=== PATIENT | male | born 1965 | race Caucasian/White ===

== ENCOUNTER 2017-02-26 16:37 | Emergency (ER) | payer MEDICARE ==
[2017-02-26 17:25] LABS: #Basophils 0.1 thou/uL (0.0-0.2); #Eosinphils 0.1 thou/uL (0.0-0.7); #Lymphocytes 1.3 thou/uL (1.20-3.40); #Monocytes 0.8 thou/uL (0.11-0.59); #Neutrophils 6.8 thou/uL (1.40-6.50); %Basophils 0.7 % (0.0-1.0); %Eosinophils 1.4 % (0.0-10.0); %Monocytes 8.6 % (0.0-10.0); Hematocrit 39.5 % (42.0-52.0); Mean Platelet Volume 8.7 fL (7.4-10.4); Red Blood Cell (RBC) Count 4.34 mill/uL (4.70-6.10)
[2017-02-26 17:50] LABS: ALT (SGPT) Less than 7 U/L (8-55); AST (SGOT) 8 U/L (5-34); Alkaline Phosphatase 88 U/L (40-150); Anion Gap 12 mmol/L (10-20); BUN (Urea Nitrogen) 10 mg/dL (8.4-25.7); Bilirubin, Total 0.4 mg/dL (0.2-1.2); CK (CPK) 69 U/L (30-200); Calc. Creatinine Clearance 0 mL/min (70-130); Calcium 8.7 mg/dL (7.8-10.44); Carbon Dioxide 26 mmol/L (22-29); Chloride 103 mmol/L (98-107); Estimated GFR-MDRD 71; Globulin 3.3 g/dL (2.4-3.5); Protein, Total 6.7 g/dL (6.0-8.3)
[2017-02-26 17:54] LABS: Troponin I 0.023 ng/mL (< 0.028)
--- NOTE | 2017-02-26 18:15 | RAD ---
RADIOGRAPH CHEST 1 VIEW: Date: 02/26/17 Time: 5:19 p.m. HISTORY: 52-year-old male with chest pain. COMPARISON: 01/08/17. FINDINGS: Elevation of the lateral aspect of the right hemidiaphragm, with chronic blunting of the lateral cos tophrenic angle. Cardiac size within normal limits. Signs of previous CABG. No consolidation or pulm onary edema. Mild pulmonary scar at the lateral aspect of the right mid lung zone. No pneumothorax. No mediastinal widening. No interval change overall. IMPRESSION: 1. No acute findings. 2. Status post coronary artery bypass graft surgery is evidence for coronary atherosclerotic di sease. 3. Chronic right lateral basilar pleural and pulmonary scarring. [facility] [] POS: [facility]
[2017-02-26 18:24] LABS: Lactic Acid - Sepsis 2.6 mmol/L (0.5-2.2)
[2017-02-26] MEDS ORDERED: Ondansetron HCl/PF 4 MG/2 ML Vial ONE (18:32)
[2017-02-26] MEDS ORDERED: Sodium Chloride 0.9% 100 ML ONE (18:45)
[2017-02-26] MEDS ORDERED: Piperacillin/Tazobactam 4.5 GM VIAL ONE (18:45)
--- NOTE | 2017-02-26 19:38 | RAD ---
RADIOGRAPH LEFT FOOT 3 VIEWS: Date: 02/26/17 Time: 5:59 p.m. HISTORY: 52-year-old male with increasing erythema and pain in the left foot. Status post recent partial ampu tation. COMPARISON: 02/02/17. FINDINGS: There has been interval amputation at the junction between the proximal and middle thirds of the fif th proximal phalanx. There is a moderately large, approximately 25 x 7 mm calcific or ossific densit y with ill-defined margins located in the soft tissues slightly medial to the distal osseous stump o f the amputation, slightly overlapping that stump. The residual portion of the proximal metadiaphysi s of the fifth metatarsal also has a new finding of permeative, mixed lucent changes. This raises th e possibility of osteomyelitis. There is no soft tissue gas. The rest of the foot is intact. Mild to moderate degenerative changes at dorsum of midfoot. IMPRESSION: 1. Status post amputation at proximal-mid shaft of left fifth metatarsal. 2. Permeative appearance of the proximal fifth metatarsal mid shaft stump, raising the possibil ity of osteomyelitis. 3. Moderate sized calcific or ossific fragment in the soft tissues distal and medial to the arleen mp, of uncertain etiology and significance. POS: [facility]
--- NOTE | 2017-02-26 22:52 | HP ---
PRIMARY CARE PHYSICIAN: Listed as none. CHIEF COMPLAINT: Left foot pain, chest pain. HISTORY OF PRESENT ILLNESS: Mr. Adams is a 52-year-old white male well known to me from previous h ospitalization back in 01/2017. 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 He was started on IV antibiotics. MRI confirmed osteomyelitis with bone destruction, and Dr. Welch was consulted who performed a left fifth partial ray amputatio n and placed a wound VAC. The patient was discharged home from the hospital on 01/28/2017. [facility] time was followed by Dr. Sorto, has been seeing Dr. Welch periodically as well as home care for wound VAC changes since discharge. He was discharged home on Augmentin and Cipro p.o. with plans t o follow up 2 weeks after his last discharge. The patient was seen by Dr. Welch recently with good reports of his foot. He was seen by home care earlier today with VAC change where he was told that his wound looked good and did not look infecte d. There was concern about some redness that was developing on the wound site, but was told by the nurse, it looked okay. He developed some sharp pains throughout different areas of his foot through the course of the day a nd then developed an episode of chest pain. He got concerned, so he called EMS. Because of the edmundo st pain, he was given nitro en route which made his pain go away. He described the pain as a sharp pain present in the center of his chest. On arrival to the ER, he was evaluated, workup was unremarkable, labs were normal including inflamma tory markers improving, and we were asked to evaluate. I had seen the patient improving during his hospital stay. A wound VAC was removed when I entered t room and the wound was evaluated. He denies any fevers or chills. No chest pain present, no [place], vomiting. No cold sweats, no diarrhea, constipation. PAST MEDICAL HISTORY: 1. Diabetes mellitus type 2. 2. Coronary artery disease. 3. Hyperlipidemia. 4. Hypertension. PAST SURGICAL HISTORY: 1. Coronary artery bypass grafting. 2. Left foot callus removal. 3. Fifth partial ray amputation of the right foot. HOME MEDICATIONS: 1. He completed a 2 week course of Augmentin 875 mg b.i.d. and Cipro 500 mg p.o. b.i.d. from 2016 to 02/11/2017. 2. Lipitor 40 mg p.o. at bedtime. 3. Aspirin 325 mg daily. 4. Plavix 75 mg daily. 5. Lasix 20 mg daily. 6. Insulin NPH 70/30, 30 units subcu b.i.d. 7. Imdur extended release 60 mg daily. 8. Lisinopril 10 mg daily. 9. Lopressor 50 mg p.o. b.i.d. 10. Aldactone 25 mg daily. 11. Metformin 1000 mg p.o. b.i.d. 12. Ultram 50 mg p.o. as needed for pain. ALLERGIES: No known drug allergies. FAMILY HISTORY: Negative for clotting or bleeding disorder, no immune dysfunction. SOCIAL HISTORY: Negative for habits x3. He denies smoking. Occasional alcohol, but none recent. No drugs. REVIEW OF SYSTEMS: Ten point review of systems was performed and was negative for all other systems except as stated per HPI. PHYSICAL EXAMINATION: VITAL SIGNS: Temperature is 98.4, pulse 85, blood pressure 145/90, respiratory 18, sat 98% on room air. GENERAL: He is awake. He is alert. He is oriented x3. He is in no acute distress. HEENT: Normocephalic, atraumatic. Pupils are equal, round, and reactive to light bilaterally. Muc ous membranes moist. He had no visible lesion. No thrush. LUNGS: Clear. CARDIOVASCULAR: Normal S1, S2, no S3 or S4. No murmurs or rubs. ABDOMEN: Soft, it is nontender, nondistended, no mass, no organomegaly. EXTREMITIES: Showed no cyanosis, no clubbing. On the right, he has no edema. On the left, he has a partial fifth ray amputation. A wound VAC was in place, but removed. He has an extremely good lo oking beefy red granulating wound bed. There is no maceration. Does have a slight hyperemia around the wound itself without much increased heat. There is no drainage or foul odor. His entire foot is slightly swollen. SKIN: Otherwise, warm, moist and well perfused without any rashes or lesions. NEUROLOGIC: Cranial nerves II through XII grossly intact. Some decreased sensation to the plantar aspect of his feet. LABORATORY DATA: CBC showed a white count of 9, hemoglobin 13.2, hematocrit of 39.5 and platelets o f 184,000. Sed rate was 41, which is improved from previous of 84 on discharge. Chemistry showed a CMP that is fairly normal except for sugar of 468. Liver functions were normal. Albumin was impro yolanda at 3.4 and C-reactive protein was elevated at 2.97, down from 5.14 on discharge a month ago. Tr oponin I was normal. Lactic acid was mildly elevated at 2.6. RADIOGRAPHIC STUDIES: The patient had a foot x-ray that showed no acute changes. Chest x-ray was u nremarkable. ASSESSMENT AND PLAN: 1. 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 Foot actually looks extremely well. It does not look like ther e is any source of infection or any signs of infection. The wound is healing exceptionally well. I t is obvious that the patient has been using his foot more than he is supposed to. He has got some dependent edema and some hyperemia secondary to that and the wound VAC. I encouraged him to do only his necessary activities and get his foot elevated. We will put a wet to dry on his wound and let him go home tonight. He can call wound care and the home care in the morning to place his wound VAC . 2. Chest pain, suspect noncardiac. The patient has had multiple workups recently. Sees Dr. Cavazos . He is supposed to see him in the near future. 3. Diabetes mellitus type 2, insulin-dependent and uncontrolled. Patient was encouraged to follow diabetic diet and take his insulin as prescribed. Continue his metformin. I did encourage him to c ontact his primary doctor immediately, so he have his lactic acid levels followed long-term. 4. Hypertension. Continue his home medications. 5. Chronic diastolic heart failure, stable. 6. Coronary artery disease, stable.
== END 2017-02-26 21:57 | disposition home or self-care (01) ==
LOC: ERS 16:37
DX: R07.9 Chest pain, unspecified (principal); M79.672 Pain in left foot; E11.9 Type 2 diabetes mellitus without complications; E78.00 Pure hypercholesterolemia, unspecified; I11.0 Hypertensive heart disease with heart failure; I50.9 Heart failure, unspecified; I25.2 Old myocardial infarction; Z79.4 Long term (current) use of insulin; Z79.82 Long term (current) use of aspirin; Z79.899 Other long term (current) drug therapy
CPT/HCPCS: 36415; 71010; 80053; 82550; 82553; 83605; 84484; 85025; 85652; 86140; 87040; 87149; 93005; 94760; 96365; 96367; 96375; J2270; J2405; J2543; J3370; J7050

== ENCOUNTER 2017-08-26 11:01 | Emergency (ER) | payer MEDICARE | END 2017-08-26 11:49 | disposition home or self-care (01) | LOC: ERS 11:01 | DX: H92.03 Otalgia, bilateral (principal); E11.9 Type 2 diabetes mellitus without complications; I25.2 Old myocardial infarction; I11.0 Hypertensive heart disease with heart failure; I50.9 Heart failure, unspecified; E78.00 Pure hypercholesterolemia, unspecified | CPT/HCPCS: 99282 ==

== ENCOUNTER 2018-01-09 17:42 | Emergency (ER) | payer MEDICARE | END 2018-01-09 19:45 | disposition home or self-care (01) | LOC: ERS 17:42 | DX: S01.411D Laceration without foreign body of right cheek and temporomandibular area, subsequent encounter (principal); E11.9 Type 2 diabetes mellitus without complications; I25.2 Old myocardial infarction; I11.0 Hypertensive heart disease with heart failure; I50.9 Heart failure, unspecified; E78.00 Pure hypercholesterolemia, unspecified; Z79.4 Long term (current) use of insulin; Z79.82 Long term (current) use of aspirin; Z79.899 Other long term (current) drug therapy ==

== ENCOUNTER 2018-07-22 12:42 | Outpatient (CLI) | payer OTHER ==
--- NOTE | 2018-07-22 14:01 | RAD ---
TWO VIEWS LUMBAR SPINE: DATE: 07/22/2018. HISTORY: Disability examination. COMPARISON: 10/05/2016. FINDINGS: Again, there are 5 [id number] lumbar-type vertebral bodies. Multilevel osteophytes are seen wit h prominent lateral and anterolateral bridging osteophytes at the L4-5 and L5-S1 levels as well as la terally on the right at the L1-2 level. The vertebral body heights are within normal limits. No fra cture is seen. However, there is grade I anterolisthesis again noted involving L5 on S1 with a sugge stion of bilateral pars defects. Irregularity of the tip of the L4 transverse process is seen which may be developmental in origin, but this is a stable finding. IMPRESSION: 1. Stable spondylolisthesis lumbosacral junction. 2. Degenerative changes of the lumbar spine with bridging osteophytes present as described above. 3. Mild right convex curvature of the upper lumbar spine. POS: [facility]
== END 2018-07-22 12:43 | disposition home or self-care (01) ==
LOC: BICRAD 12:42
PROVIDERS: ATTEND Psychiatry & Neurology Psychiatry
DX: Z02.71 Encounter for disability determination (principal); M43.16 Spondylolisthesis, lumbar region; M47.816 Spondylosis without myelopathy or radiculopathy, lumbar region; M25.78 Osteophyte, vertebrae; M43.9 Deforming dorsopathy, unspecified
CPT/HCPCS: 72100

== ENCOUNTER 2019-04-16 17:48 | Emergency (ER) | payer MEDICARE ==
--- NOTE | 2019-04-16 18:35 | RAD ---
RIGHT HAND THREE VIEWS: History: Injury. FINDINGS/IMPRESSION: There are mild degenerative changes at the first carpal metacarpal and at the first MCP joint. No fra cture. No acute osseous abnormality demonstrated. POS: [facility]
== END 2019-04-16 18:40 | disposition home or self-care (01) ==
LOC: ERS 17:48
DX: L01.00 Impetigo, unspecified (principal); E11.9 Type 2 diabetes mellitus without complications; I11.0 Hypertensive heart disease with heart failure; I50.9 Heart failure, unspecified; E78.00 Pure hypercholesterolemia, unspecified; F17.220 Nicotine dependence, chewing tobacco, uncomplicated; Z79.899 Other long term (current) drug therapy; Z79.84 Long term (current) use of oral hypoglycemic drugs; Z79.82 Long term (current) use of aspirin

== ENCOUNTER 2019-05-24 15:51 | Emergency (ER) | payer MEDICARE ==
[2019-05-24] MEDS ORDERED: Bicillin LA 1.2 MILLION UNITS/2 ML SYRINGE ONE (16:32)
== END 2019-05-24 16:54 | disposition home or self-care (01) ==
LOC: ERS 15:51
DX: J02.0 Streptococcal pharyngitis (principal); E11.9 Type 2 diabetes mellitus without complications; I11.0 Hypertensive heart disease with heart failure; I50.9 Heart failure, unspecified; E78.00 Pure hypercholesterolemia, unspecified; F17.220 Nicotine dependence, chewing tobacco, uncomplicated; Z79.4 Long term (current) use of insulin; Z79.899 Other long term (current) drug therapy; Z87.01 Personal history of pneumonia (recurrent); Z79.82 Long term (current) use of aspirin; Z79.84 Long term (current) use of oral hypoglycemic drugs
CPT/HCPCS: 96372; 99282; J0561

== ENCOUNTER 2020-10-27 13:59 | Emergency (ER) | payer MEDICARE ==
[2020-10-27] MEDS ORDERED: Iopamidol-370 76% 500 ML 1 ML ONE (15:18)
[2020-10-27 15:20] LABS: Bilirubin Negative (Negative); Blood, Urine Small (Negative); Glucose, Urine (Dipstick) >=1000 mg/dL (Negative); Ketone, Urine Negative (Negative); Leukocyte Negative (Negative); Nitrite Negative (Negative); Protein, Urine (Dipstick) 100 mg/dL (Neg-Trace); Urobilinogen 0.2 mg/dL (Less than 2); pH, Urine 6.5 (5.0-9.0)
[2020-10-27 15:21] LABS: Clarity Clear (Clear)
[2020-10-27 15:23] LABS: Bacteria/HPF None Seen HPF (None Seen); RBC/HPF 0-3 HPF (0-3); Squamous Epithelial 0-3 HPF (0-3); WBC/HPF 0-3 HPF (0-3)
[2020-10-27 15:44] LABS: Hemoglobin 16.4 g/dL (14.0-18.0); Mean Corpuscular HGB CONC 34.1 g/dL (32.0-36.0); Mean Corpuscular Hemoglobin 29.7 pg (27.0-31.0); Mean Corpuscular Volume 87.1 fL (78.0-98.0); Platelet Count 157 thou/uL (130-400); RBC Distribution Width 13.3 % (11.5-14.5); Red Blood Cell (RBC) Count 5.51 mill/uL (4.70-6.10); White Blood Cell (WBC) Count 10.3 thou/uL (4.8-10.8)
[2020-10-27 16:04] LABS: Albumin 3.8 g/dL (3.5-5.0); Anion Gap 17 mmol/L (10-20); BUN (Urea Nitrogen) 17 mg/dL (8.4-25.7); Bilirubin, Total 0.6 mg/dL (0.2-1.2); Calc. Creatinine Clearance 0 mL/min (70-130); Calcium 9.1 mg/dL (7.8-10.44); Carbon Dioxide 22 mmol/L (22-29); Chloride 101 mmol/L (98-107); Globulin 3.4 g/dL (2.4-3.5); Glucose 454 mg/dL (70-105); Potassium 4.1 mmol/L (3.5-5.1); Protein, Total 7.2 g/dL (6.0-8.3); Sodium 136 mmol/L (136-145)
[2020-10-27 16:05] LABS: ALT (SGPT) 9 U/L (8-55); AST (SGOT) 10 U/L (5-34); Alkaline Phosphatase 100 U/L (40-110); Lipase Less than 4 U/L (8-78)
[2020-10-27 16:09] LABS: Band 2 % (5-11); Eosinophils 2 % (0-10); Lymphocytes 18 % (21-51); MDiff Complete? YES; Monocytes 8 % (0-10); Neutrophil 68 % (42-75); Platelet Morphology Comment Appears Adequate; RBC Morphology Normal
== END 2020-10-27 18:04 | disposition home or self-care (01) ==
LOC: ERS 13:59
DX: R10.31 Right lower quadrant pain (principal); R10.11 Right upper quadrant pain; Z79.899 Other long term (current) drug therapy; Z79.4 Long term (current) use of insulin; Z79.82 Long term (current) use of aspirin; I11.0 Hypertensive heart disease with heart failure; I50.9 Heart failure, unspecified; E11.9 Type 2 diabetes mellitus without complications; I25.2 Old myocardial infarction; E78.00 Pure hypercholesterolemia, unspecified; F17.220 Nicotine dependence, chewing tobacco, uncomplicated
CPT/HCPCS: 36416; 74177; 80053; 81003; 81015; 83605; 83690; 85025; 87040; 87081; 87430; Q9967

== ENCOUNTER 2020-11-26 12:07 | Day surgery (SDC) | payer MEDICARE ==
[~2020-11-26 12:07] MED LIST: Iopamidol 370 76% 100 ML VIAL ONE
[2020-11-26] MEDS ORDERED: EPINEPHrine 1 MG/10 ML Abboject SYRINGE ONE ×2 (12:19→12:51)
[2020-11-26] MEDS ORDERED: Atropine Sulfate 1 mg/10 ml Syringe ONE (12:19)
[2020-11-26] MEDS ORDERED: Sodium Bicarb 50 MEQ/50 ML Abboject 8.4% SYRINGE ONE ×3 (12:19→12:51)
[2020-11-26] MEDS ORDERED: Rocuronium Bromide 10 MG/ML (10ML VIAL) ONE (12:19)
[2020-11-26] MEDS ORDERED: Calcium Chloride 1 GM/10 ML Abboject SYRINGE ONE (12:19)
[2020-11-26] MEDS ORDERED: Midazolam HCl 2 mg/2 ml Vial ONE (12:31)
== END 2020-11-26 13:05 | disposition expired ==
LOC: ERS 12:07 → CCL 12:18
PROVIDERS: ATTEND Internal Medicine Cardiovascular Disease
PROC: 5A1223Z Performance of Cardiac Pacing, Continuous (ICD-10-PCS; principal; 2020-11-26)
DX: I21.19 ST elevation (STEMI) myocardial infarction involving other coronary artery of inferior wall (principal); I44.2 Atrioventricular block, complete; I46.9 Cardiac arrest, cause unspecified; I25.2 Old myocardial infarction; Z95.1 Presence of aortocoronary bypass graft
CPT/HCPCS: 33210; 76942; J0171; J0461; J2250; Q9967